=== PATIENT | female | born 1985 | race African-American/Black ===

== ENCOUNTER 2017-04-01 20:15 | Emergency (ER) | payer SELFPAY ==
[~2017-04-01] VITALS: Ht 154.9 cm; Wt 58.1 kg
[~2017-04-01 20:15] MED LIST: IBUPROFEN600 MG ORAL; NKM
[2017-04-01 20:37] VITALS: BP 113/79
[2017-04-01] MEDS ORDERED: CORTISPORIN EAR10 ML LEFT EAR (20:58)
[2017-04-01] MEDS ORDERED: CLARITIN-D 121 EAC1 ORAL (20:58)
[2017-04-01 21:15] VITALS: BP 113/79
--- NOTE | 2017-04-01 22:47 | Emergency Room Report ---
History of Present Illness General Chief Complaint: Earache Source: Patient Present Illness HPI This is a 31-year-old female who presented after having increased earache. Patient was having gradual onset of symptoms. Patient reports having bilateral earache worsened left side. Patient reported having increased sharp pain. The pain is worse with movement. She stated this had been intermittently present for several years. She denies any fever or cough Allergies: Coded Allergies: No Known Allergies (Unverified , 04/01/17) Patient History Past Medical History: see triage record Last Menstrual Period: 3 weeks ago Now: No Reviewed Nursing Documentation: PMH: Agreed, PSxH: Agreed Nursing Documentation-PMH Past Medical History: No Stated History Review of Systems All Other Systems: negative except mentioned in HPI Physical Exam Vital Signs Date Time Temp Pulse Resp B/P (MAP) Pulse Ox O2 Delivery O2 Flow Rate FiO2 04/01/17 20:21 98.2 94 16 113/79 96 Room Air General Appearance: well appearing, no apparent distress, alert, GCS 15 Head: normocephalic, atraumatic ENT: hearing grossly normal, normal voice, other - tm retracted Neck: full range of motion, supple Respiratory: lungs clear, normal breath sounds, no respiratory distress, speaking full sentences Musculoskeletal: no calf tenderness Neurologic: normal gait Psychiatric: mood/affect normal Skin: no rash Medical Decision Making Diagnostic Impression: Primary Impression: Otitis externa of left ear ER Course Patient presented for ear pain. Differential diagnosis included was not limited to otitis media, malignant otitis externa, foreign body, cellulitis, mastoiditis, carotid dissection, myocardial infarction among others. Patient has a benign exam and does not appear to require any further imaging or laboratory testing at this time. The patient was given prescription for Cortisporin. The patient is advised to follow up with primary care doctor in 1 -2 days for ENT referral. Patient is advised to return if any worsening condition or if any changes in status that are concerning. This report is dictated with [employer] production support supervisor software which may occasionally lead to discrepancies related to use of this software. Last Vital Signs Date Time Temp Pulse Resp B/P (MAP) Pulse Ox O2 Delivery O2 Flow Rate FiO2 04/01/17 20:37 98.2 16 113/79 96 Room Air 04/01/17 20:21 94 Status: improved Disposition: HOME, SELF-CARE Condition: Stable Scripts Loratadine/Pseudoephedrine (CLARITIN-D 12 HOUR TABLET) 1 Each Tab.er.12h 1 TAB ORAL EVERY 12 HOURS, #30 TAB Prov: Juan Bettencourt 04/01/17 Neomycin/Polymyxin B Sulf/Hc* (CORTISPORIN EAR SOLUTION*) 10 Ml Solution 4 DROP LEFT EAR QID, #10 ML 0 Refills Prov: Juan Bettencourt 04/01/17 Patient Instructions: Earache Juan Bettencourt Apr 01, 2017 22:47
== END 2017-04-01 21:15 | disposition home or self-care (01) ==
LOC: EMR 20:30
DX: H60.92 Unspecified otitis externa, left ear (principal)
CPT/HCPCS: 99284

== ENCOUNTER 2018-07-23 23:27 | Emergency (ER) | payer SELFPAY ==
[~2018-07-23] VITALS: Ht 154.9 cm; Wt 58.1 kg
[~2018-07-23 23:27] MED LIST changes: +CLARITIN-D 121 EAC1 ORAL; +CORTISPORIN EAR10 ML LEFT EAR
[2018-07-23] MEDS ORDERED: NKM (23:35)
[2018-07-23 23:40] VITALS: BP 134/95
[2018-07-23] MEDS ORDERED: HYDROcodone/Acetamin 5/325 tab ORAL ONE (23:45)
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
[2018-07-24 00:36] VITALS: BP 134/95
[2018-07-24] MEDS ORDERED: IBUPROFEN600 MG ORAL (00:36)
[2018-07-24] MEDS ORDERED: HYDROCODON-ACE1 EA15 ORAL (00:36)
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
--- NOTE | 2018-07-24 00:37 | NUR ---
ED Nurse Note: Pt cleared by health care Provider for discharge. DC instructions/prescription was given and explained to pt and verbalized understanding of teachings. All medical deviecs such as ID band removed. Pt is AAO x4, ambulatory and left with all personal belongings.
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
--- NOTE | 2018-07-24 09:04 | Diagnostic Imaging Report ---
Indication: Abdominal pain Technique: Continuous helical transaxial imaging of the abdomen and pelvis was obtained from the lung bases to the pubic symphysis. No intravenous contrast was administered. Coronal 2-D reformats were also obtained. Automatic Exposure Control was utilized. Total Dose length Product (DLP): 531.[address] Dose Index Volume (CTDIvol): 11.05 mGy Comparison: none Findings: The lung bases are clear. There is severe low-attenuation of the liver consistent with fatty infiltration. No free fluid identified. Evaluation of solid organs is otherwise limited on this noncontrast examination. Bowel gas pattern is nonobstructed. Appendix is normal. Osseous structures appear normal. There is degenerative disc disease at L5-S1 with vacuum phenomena and narrowing and endplate osteophytes. IMPRESSION: No acute injury Severe fatty liver. [facility] has communicated the preliminary results to the Emergency Department. Their findings are largely concordant with this report. The CT scanner at [facility] is accredited by the [employer] and the scans are performed using dose optimization techniques as appropriate to a performed exam including Automatic Exposure control.
== END 2018-07-24 00:40 | disposition home or self-care (01) ==
LOC: EMR 23:50
DX: S09.90XA Unspecified injury of head, initial encounter (principal); S00.11XA Contusion of right eyelid and periocular area, initial encounter; S30.1XXA Contusion of abdominal wall, initial encounter; Y04.2XXA Assault by strike against or bumped into by another person, initial encounter
CPT/HCPCS: 70450; 74176; 81025; 99284

== ENCOUNTER 2018-12-19 16:05 | Emergency (ER) | payer MEDICAID ==
[~2018-12-19] VITALS: Ht 154.9 cm; Wt 59.0 kg
[~2018-12-19 16:05] MED LIST changes: +HYDROCODON-ACE1 EA15 ORAL
[2018-12-19 16:20] VITALS: BP 115/80
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
[2018-12-19] MEDS ORDERED: NKM (16:22)
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
[2018-12-19] MEDS ORDERED: Tylenol #3 tab (300mg/30mg) ORAL ONE (16:45)
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
[2018-12-19] MEDS ORDERED: IBUPROFEN600 MG ORAL (18:39)
[2018-12-19] MEDS ORDERED: LIDODERM700 M1 TOPIC (18:39)
[2018-12-19] MEDS ORDERED: ROBAXIN-750750 MG PO (18:39)
[2018-12-19 18:49] VITALS: BP 115/80
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
== END 2018-12-19 18:49 | disposition home or self-care (01) ==
LOC: EMR 16:59
DX: F07.81 Postconcussional syndrome (principal); M54.2 Cervicalgia; M25.461 Effusion, right knee; S60.221A Contusion of right hand, initial encounter; S00.83XA Contusion of other part of head, initial encounter; S00.511A Abrasion of lip, initial encounter; M62.838 Other muscle spasm; V43.62XA Car passenger injured in collision with other type car in traffic accident, initial encounter; Y92.410 Unspecified street and highway as the place of occurrence of the external cause
CPT/HCPCS: 70450; 70486; 72125; 73130; Z7502; 99284

== ENCOUNTER 2019-04-19 14:39 | Emergency (ER) | payer MEDICAID ==
[~2019-04-19] VITALS: Ht 154.9 cm; Wt 61.2 kg
[~2019-04-19 14:39] MED LIST changes: +LIDODERM700 M1 TOPIC; +ROBAXIN-750750 MG PO
[2019-04-19 15:40] VITALS: BP 109/62
--- NOTE | 2019-04-19 15:41 | NUR ---
ED Nurse Note:pt. came with rash on her upper body, seen by ER PA then received PO meds
--- NOTE | 2019-04-19 15:47 | Emergency Room Report ---
History of Present Illness General Chief Complaint: Skin Rash/Abscess Source: Patient Present Illness HPI 33-year-old female presents to the emergency department complaining of itchy rash with multiple skin lesions that has been progressive x2 weeks. Patient reports that she was seen here last week and has been taking Benadryl every 4-6 hours as prescribed with no relief of her symptoms. Patient reports that she is observing new lesions. Patient states rash is on torso and face/scalp. Patient also reports rash on the upper arms. She denies lower extremity lesions. She denies fevers or chills. Recent travel or ill contacts. Patient reports that she is only person in her household with the symptoms. Patient states itching is severe she reports multiple scabbed areas due to scratching despite taking Benadryl. Patient reports large lesion on the posterior scalp. She denies herald patch. She denies history of immune compromise. Patient denies significant past medical history. Patient denies lesions on the palms or soles. Pt.denies new medications or body washes or creams. Denies swelling of the lips, tongue , throat or airway. Denies wheezing, or shortness of breath. Denies blisters, oral lesions, or sloughing of the skin. She denies pain. Allergies: Coded Allergies: No Known Allergies (Unverified , 04/01/17) Patient History Past Medical History: see triage record Past Surgical History: none Pertinent Family History: none Now: No Reviewed Nursing Documentation: PMH: Agreed; PSxH: Agreed Nursing Documentation-PMH Past Medical History: No Stated History Review of Systems All Other Systems: negative except mentioned in HPI Physical Exam Vital Signs Date Time Temp Pulse Resp B/P (MAP) Pulse Ox O2 Delivery O2 Flow Rate FiO2 04/19/19 14:54 98.4 120 20 109/62 (78) 99 Room Air Sp02 EP Interpretation: reviewed, normal General Appearance: no apparent distress, alert, GCS 15, non-toxic Head: normocephalic, atraumatic, other - Rash on face and scalp Eyes: bilateral eye normal inspection, bilateral eye PERRL ENT: hearing grossly normal, no angioedema, normal voice, other - no swelling of the lips or tongue Neck: full range of motion Respiratory: chest non-tender, lungs clear, normal breath sounds, no wheezing, speaking full sentences, other - no stridor Cardiovascular #1: regular rate, rhythm Gastrointestinal: other - rash Musculoskeletal: normal range of motion, gait/station normal, non-tender Neurologic: alert, motor strength/tone normal, oriented x3, sensory intact, responsive, speech normal Psychiatric: judgement/insight normal Skin: rash - scattered red papules some of which have been excoriated and are scabbed diffusely on the face, scalp, neck, torso and bilateral UE's. no lesions from the waist down. several lesions have moderate surrounding erythema and warmth. no blisters, no vesicles, no sloughing of the skin. no involvement of the palms or soles. Lymphatic: no adenopathy Medical Decision Making PA Attestation Dr. Rankin is my supervising Physician whom patient management has been discussed with. Diagnostic Impression: Primary Impression: Rash and other nonspecific skin eruption ER Course 33-year-old female presents to the emergency department complaining of itchy rash with multiple skin lesions that has been progressive x2 weeks. Patient reports that she was seen here last week and has been taking Benadryl every 4-6 hours as prescribed with no relief of her symptoms. Patient reports that she is observing new lesions. Patient states rash is on torso and face/scalp. Patient also reports rash on the upper arms. She denies lower extremity lesions. She denies fevers or chills. Recent travel or ill contacts. Patient reports that she is only person in her household with the symptoms. Patient states itching is severe she reports multiple scabbed areas due to scratching despite taking Benadryl. Patient reports large lesion on the posterior scalp. She denies herald patch. She denies history of immune compromise. Patient denies significant past medical history. Patient denies lesions on the palms or soles. Pt.denies new medications or body washes or creams. Denies swelling of the lips, tongue , throat or airway. Denies wheezing, or shortness of breath. Denies blisters, oral lesions, or sloughing of the skin. She denies pain. Ddx considered but are not limited to cellulitis, scabies, shingles, varicella, dermatitis, urticaria, eczema, tinea, viral exanthem, SJS Vital signs: are WNL, pt. is afebrile H&PE are most consistent with unspecified rash, not c/w viral exanthem. The patient is not in acute respiratory distress. Nontoxic in appearance. No evidence to suggest acute impending airway compromise or anaphylaxis at this time. ORDERS: none required at this time, the diagnosis is clinical ED INTERVENTIONS: -Prednisone PO 60mg -I do not identify an emergent condition at this time. With current presentation , pt. is stable for close outpatient follow up and conservative treatment. D/ w pt. to return promptly to ED with worsening or new symptoms.- Pt. verbalizes' understanding and agreement with proposed treatment plan.proposed treatment plan. D/w pT. importance of Dermatology follow up for definitive diagnosis. Pt. will be treated for allergic response as well as secondary bacterial infection as some lesions are scabbed over with erythema due to scratching. DISCHARGE: At this time pt. is stable for d/c to home. Will provide printed patient care instructions, and any necessary prescriptions. Care plan and follow up instructions have been discussed with the patient prior to discharge. Last Vital Signs Date Time Temp Pulse Resp B/P (MAP) Pulse Ox O2 Delivery O2 Flow Rate FiO2 04/19/19 14:54 98.4 120 20 109/62 (78) 99 Room Air Disposition: HOME, SELF-CARE Condition: Stable Scripts Cephalexin* (KEFLEX*) 500 Mg Capsule 500 MG ORAL Q6HR for 7 Days, #28 CAP 0 Refills Prov: Janie King 04/19/19 Hydrocortisone 2% Cream (ANTI-ITCH 2% CREAM) Y Cr 1 APPLIC TP Q6HR, #28 GM 2 Refills Prov: Janie King 04/19/19 Patient Instructions: Rash Additional Instructions: Take medications as directed. Do not drink alcohol, drive, or operate heavy machinery while taking Benadryl as this may cause drowsiness. Follow up with a Primary Care Provider in 3-5 days for DERMATOLOGY REFERRAL , even if your symptoms have resolved. Return sooner to ED if new symptoms occur, or current symptoms become worse. - Please note that this Emergency Department Report was dictated using [employer] nurse practitioner technology software, occasionally this can lead to erroneous entry secondary to interpretation by the dictation equipment. Janie King Apr 19, 2019 15:47
[2019-04-19] MEDS ORDERED: ANTI-ITCH28 G1 TP (15:50)
[2019-04-19] MEDS ORDERED: CEPHALEXIN500 MG ORAL (15:50)
[2019-04-19 15:55] VITALS: BP 109/62
--- NOTE | 2019-04-19 15:55 | NUR ---
ER DISCHARGE NOTE: Patient is cleared to be discharged per ERMD, pt is aox4, on room air, with stable vital signs. pt was given dc and prescription instructions, pt was able to verbalize understanding, pt is able to ambulate with steady gait. pt took all belongings.
== END 2019-04-19 16:00 | disposition home or self-care (01) ==
LOC: EMR 15:40
DX: R21 Rash and other nonspecific skin eruption (principal)
CPT/HCPCS: J7512; Z7502; 99282